=== PATIENT | male | born 1955 | race Caucasian/White ===

== ENCOUNTER → 2016-08-03 | Outpatient (CLI) | payer OTHER | LOC: KOH-I 08:16 | DX: M79.661 Pain in right lower leg (principal); M79.89 Other specified soft tissue disorders; R25.2 Cramp and spasm | CPT/HCPCS: 93971 ==

== ENCOUNTER 2020-09-25 10:34 | Emergency (ER) | payer SELFPAY ==
[~2020-09-25] VITALS: Ht 180.3 cm; Wt 127.0 kg
== END 2020-09-25 13:50 | disposition home or self-care (01) ==
LOC: ER1 10:34
DX: U07.1 COVID-19 (principal)
CPT/HCPCS: 99283; M0243

== ENCOUNTER → 2021-03-31 | Outpatient (CLI) | payer OTHER | LOC: ECHO 08:22 | DX: I10 Essential (primary) hypertension (principal); R00.2 Palpitations; I08.3 Combined rheumatic disorders of mitral, aortic and tricuspid valves | CPT/HCPCS: ECHO; 93306 ==